=== PATIENT | female | born 2000 | race American Indian/Alaskan Native ===

== ENCOUNTER 2021-09-04 11:57 | Outpatient (CLI) | payer BC ==
--- NOTE | 2021-09-04 15:45 | XRay Report ---
LEFT WRIST 4 VIEWS INDICATION: LEFT WRIST PAIN. COMPARISON: None. IMPRESSION: No acute osseous or soft tissue abnormality. No significant DJD. Signer Name: Evan Crowder Jr, MD Signed: 09/04/2021 3:29 PM Workstation Name: [id number]
== END 2021-09-04 11:58 | disposition home or self-care (01) ==
LOC: XRAY 11:57
PROVIDERS: ATTEND Internal Medicine
DX: M25.532 Pain in left wrist (principal); M67.40 Ganglion, unspecified site